=== PATIENT | male | born 2000 | race African-American/Black ===

== ENCOUNTER 2018-08-17 15:27 | Emergency (ER) | payer OTHER ==
[~2018-08-17] VITALS: Ht 180.3 cm; Wt 115.7 kg
[2018-08-17 15:33] VITALS: BP 126/80
[2018-08-17 16:01] VITALS: BP 120/71
== END 2018-08-17 16:02 | disposition home or self-care (01) ==
LOC: MED 15:27
DX: J02.9 Acute pharyngitis, unspecified (principal); Z88.1 Allergy status to other antibiotic agents
CPT/HCPCS: 99283